=== PATIENT | male | born 1965 | race Caucasian/White ===

== ENCOUNTER 2016-09-01 13:22 | Outpatient (CLI) | payer OTHER ==
[2016-09-01] MEDS ORDERED: LIDOCAINE 1% 50 ML MDV SUBQ ONE ×2 (14:12)
[2016-09-01] MEDS ORDERED: IOTHALAMATE MEGLUMINE 50 ML VIAL IVP ONE ×2 (14:12)
[2016-09-01] MEDS ORDERED: BUFFERED LIDOCAINE 10 ML SYRINGE IU ONE ×2 (14:12)
[2016-09-01] MEDS ORDERED: GADOPENTETATE DIMEGLUMINE 5 ML VIAL IVP ONE ×2 (14:12)
== END 2016-09-01 13:23 | disposition home or self-care (01) ==
DX: M19.012 Primary osteoarthritis, left shoulder (principal); M94.212 Chondromalacia, left shoulder; M24.012 Loose body in left shoulder; S46.812A Strain of other muscles, fascia and tendons at shoulder and upper arm level, left arm, initial encounter; S43.432A Superior glenoid labrum lesion of left shoulder, initial encounter
CPT/HCPCS: 23350; 73222; 77002; Q9961

== ENCOUNTER 2017-01-04 21:29 | Observation (INO) | payer OTHER ==
[2017-01-04] MEDS ORDERED: oxyCOD/ACETAMIN 5 MG/325 MG TABLET PO STA (22:22)
[2017-01-04] MEDS ORDERED: oxyCOD/ACETAMIN 5 MG/325 MG TABLET PO ONE (22:33)
[2017-01-04] MEDS ORDERED: ALBUTEROL NEB 2.5 MG/3 ML INH STA (22:36)
--- NOTE | 2017-01-04 22:36 | XRAY Preliminary Report ---
Exam: XR Chest 2 View PA/LAT IMPRESSION: Negative 2-view chest radiography. [facility] SITE ID: [id number]
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
--- NOTE | 2017-01-04 22:40 | XRAY Preliminary Report ---
Exam: XR Shoulder 3 View LT IMPRESSION: 1. Question tiny avulsion fracture off the superior aspect of the glenoid, age-indeterminate if real. If clinically indicated, MRI follow-up can be considered. 2. Moderate acromioclavicular degenerative changes. [facility] SITE ID: [id number]
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
[2017-01-04] MEDS ORDERED: SODIUM CHLORIDE FLUSH 0.9% 10 ML SYRINGE IVP PRN (23:39)
[2017-01-04 23:57] LABS: BASOPHILS # (AUTO) 0.1 10^3/uL (0.0-0.1); BASOPHILS % (AUTO) 0.5 %; EOSINOPHILS # (AUTO) 0.1 10^3/uL (0.0-0.7); EOSINOPHILS % (AUTO) 0.5 %; HCT - HEMATOCRIT 47.2 % (42.0-52.0); LYMPHOCYTES # (AUTO) 2.2 10^3/uL (1.5-3.5); MEAN CORPUSCULAR HEMOGLOBIN 29.8 pg (27.0-31.0); MEAN CORPUSCULAR VOLUME 87.7 fL (80.0-94.0); MEAN PLATELET VOLUME 8.1 fL (7.4-11.4); MONOCYTES # (AUTO) 0.8 10^3/uL (0.0-1.0); MONOCYTES % (AUTO) 4.9 %; NEUTROPHILS # (AUTO) 12.9 10^3/uL (1.5-6.6); NEUTROPHILS % (AUTO) 80.1 %; RED BLOOD COUNT 5.38 10^6/uL (4.70-6.10); RED CELL DISTRIBUTION WIDTH 13.5 % (12.0-15.0); UNCORRECTED WHITE BLOOD COUNT 16.1 x10^3/uL; WHITE BLOOD COUNT 16.1 x10^3/uL (4.8-10.8)
[2017-01-05 00:05] LABS: ALBUMIN/GLOBULIN RATIO 1.5 (1.0-2.2); BILIRUBIN,TOTAL 0.9 mg/dL (0.2-1.0); CALCIUM 9.9 mg/dL (8.5-10.3); CREATININE 1.1 mg/dL (0.6-1.2); POTASSIUM 3.8 mmol/L (3.5-5.0); TOTAL PROTEIN 7.8 g/dL (6.7-8.2)
[2017-01-05] MEDS ORDERED: PROCHLORPERAZINE INJ 10 MG in SODIUM CHLORIDE 0.9% 50 ML IV PRN (00:28)
[2017-01-05] MEDS: oxyCOD/ACETAMIN 5 MG/325 MG TABLET PO PRN ×3 (01:01→14:53)
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
[2017-01-05] MEDS: SODIUM CHLORIDE FLUSH 0.9% 10 ML SYRINGE IVP SCH ×2 (04:05→14:07)
[2017-01-05] MEDS: HYDROmorphone 1 MG/ML SYRINGE IVP PRN ×2 (04:05→07:39)
[2017-01-05] MEDS ORDERED: POLYETHYLENE GLYCOL 3350 17 GM PACKET PO SCH (09:00)
[2017-01-05] MEDS ORDERED: LOSARTAN 50 MG TABLET PO SCH (09:00)
[2017-01-05] MEDS ORDERED: ALLOPURINOL 100 MG TABLET PO SCH (09:00)
[2017-01-05 11:26] LABS: BASOPHILS # (AUTO) 0.1 10^3/uL (0.0-0.1); BASOPHILS % (AUTO) 0.8 %; EOSINOPHILS # (AUTO) 0.2 10^3/uL (0.0-0.7); EOSINOPHILS % (AUTO) 2.3 %; HCT - HEMATOCRIT 42.8 % (42.0-52.0); HGB - HEMOGLOBIN 14.5 g/dL (14.0-18.0); LYMPHOCYTES # (AUTO) 2.2 10^3/uL (1.5-3.5); LYMPHOCYTES % (AUTO) 24.9 %; MEAN CORPUSCULAR HEMOGLOBIN 29.5 pg (27.0-31.0); MEAN CORPUSCULAR HGB CONC 33.9 g/dL (32.0-36.0); MEAN CORPUSCULAR VOLUME 87.1 fL (80.0-94.0); MEAN PLATELET VOLUME 7.2 fL (7.4-11.4); MONOCYTES # (AUTO) 0.5 10^3/uL (0.0-1.0); MONOCYTES % (AUTO) 6.2 %; NEUTROPHILS # (AUTO) 5.7 10^3/uL (1.5-6.6); NEUTROPHILS % (AUTO) 65.8 %; RED BLOOD COUNT 4.91 10^6/uL (4.70-6.10); RED CELL DISTRIBUTION WIDTH 13.5 % (12.0-15.0); UNCORRECTED WHITE BLOOD COUNT 8.7 x10^3/uL; WHITE BLOOD COUNT 8.7 x10^3/uL (4.8-10.8)
[2017-01-05 11:36] LABS: ALBUMIN/GLOBULIN RATIO 1.5 (1.0-2.2); BILIRUBIN,TOTAL 1.1 mg/dL (0.2-1.0); CREATININE 0.9 mg/dL (0.6-1.2); POTASSIUM 3.6 mmol/L (3.5-5.0); TOTAL PROTEIN 6.5 g/dL (6.7-8.2)
--- NOTE | 2017-01-05 12:24 | Discharge Plan ---
Discharge Plan Disposition: 01 Home, Self Care Condition: Stable Prescriptions: oxyCODONE/ACET 5/325 [Percocet 5 mg/325 mg] 1 each PO Q4-6H PRN #35 tablet PRN Reason: Pain Diet: Regular Activity Restrictions: Activity as Tolerated Shower Restrictions: No Driving Restrictions: No Weight Bearing: Full Weight Additional Instructions or Follow Up instructions: May see Dr. Trinidad in one week May see PCP in two weeks Follow-Up Care: [facility] - Wound/Ostomy No Smoking: If you smoke, Please STOP! Call for help. Follow-up with: DURGA MULTANI [Primary Care Provider] -
[2017-01-05 15:32] VITALS: BP 150/85
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
== END 2017-01-05 17:30 | disposition home or self-care (01) ==
LOC: ED 21:29 → OBS 23:39
PROVIDERS: ADMIT Internal Medicine; ATTEND Nurse Practitioner Gerontology
DX: R79.89 Other specified abnormal findings of blood chemistry (principal); S42.142A Displaced fracture of glenoid cavity of scapula, left shoulder, initial encounter for closed fracture; R07.1 Chest pain on breathing; S20.419A Abrasion of unspecified back wall of thorax, initial encounter; V18.0XXA Pedal cycle driver injured in noncollision transport accident in nontraffic accident, initial encounter; Y93.55 Activity, bike riding; Y92.830 Public park as the place of occurrence of the external cause; I10 Essential (primary) hypertension; E78.00 Pure hypercholesterolemia, unspecified; M10.9 Gout, unspecified; E66.9 Obesity, unspecified; Z68.33 Body mass index [BMI] 33.0-33.9, adult
CPT/HCPCS: 36415; 71020; 73030; 80053; 84484; 85025; 93005; 93306; 96374; 96376; 99283; 99284; A9270; G0378; J1170

== ENCOUNTER 2020-06-17 08:29 | Emergency (ER) | payer OTHER ==
[2020-06-17 08:33] VITALS: BP 188/87
--- NOTE | 2020-06-17 08:51 | ED Physician Documentation ---
PD HPI HEENT - Stated complaint Stated Complaint: EAR PX - Chief complaint Chief Complaint: Heent - History obtained from History obtained from: Patient - Additional information Additional information: 54-year-old man with history of recurrent ear infections presents with gradual onset bilateral ear pain over the past 3 to 4 days, worse on the right versus the left, associated with hearing loss/muffled hearing. Pain is constant, throbbing, worse with pulling on the ear and opening and closing the jaw. Patient states that he has been using Q-tips, hydrogen peroxide, applying heat pads to the air. Denies mastoid pain, headache, fever, nasal congestion or sore throat, jaw pain. Review of Systems Constitutional: denies: Fever, Chills Ears: reports: Loss of hearing, Ear pain. denies: Drainage/discharge Throat: denies: Sore throat PD PAST MEDICAL HISTORY - Past Medical History Cardiovascular: None Respiratory: None Endocrine/Autoimmune: None GI: None : None HEENT: None Psych: None Musculoskeletal: None Derm: None - Past Surgical History Past Surgical History: Yes General: Other - Present Medications Home Medications: Ambulatory Orders Medication Instructions Recorded Confirmed Losartan [Cozaar] 50 mg PO DAILY 01/05/17 06/17/20 Simvastatin 80 mg PO DAILY PM 01/05/17 06/17/20 allopurinoL [Allopurinol] 100 mg PO DAILY 01/05/17 06/17/20 oxyCODONE/ACET 5/325 [Percocet 5 1 each PO Q4-6H PRN #35 tablet 01/05/17 06/17/20 mg/325 mg] Ciproflox/Dexameth Otic Drops 4 drops OT BID 14 Days #1 bottle 06/17/20 [Ciprodex] - Allergies Allergies/Adverse Reactions: Allergies Allergy/AdvReac Type Severity Reaction Status Date / Time No Known Drug Allergies Allergy Verified 06/17/20 08:33 - Social History Does the pt smoke?: No Smoking Status: Never smoker Does the pt drink ETOH?: No Does the pt have substance abuse?: No - Immunizations Immunizations are current?: Yes - POLST Patient has POLST: No PD ED PE NORMAL - Vitals Vital signs reviewed: Yes - General General: Alert and oriented X 3, No acute distress, Well developed/nourished - HEENT HEENT: Atraumatic, PERRL, EOMI, Moist mucous membranes, Pharynx benign, Other (BL ext aud canal swelling, R worse than left. chronic granulation tissue noted bilaterally. TMs nonvisualized 2/2 swelling. no mastoid ttp. no trismus) - Neck Neck: Supple, no meningeal sign Results - Vitals Vitals: Vital Signs - 24 hr 06/17/20 08:32 Temperature 36.1 C L Heart Rate 75 Respiratory 20 Rate Blood Pressure 188/87 H O2 Saturation 100 Oxygen O2 Source Room air PD MEDICAL DECISION MAKING - ED course ED course: 54-year-old man presents with external ear infection without signs of mastoiditis/central infection. Antibiotic drops prescribed. Strict return precautions given. Patient will follow up with his primary doctor this week Departure - Departure Disposition: 01 Home, Self Care Clinical Impression: Otitis externa Condition: Good Instructions: ED Otitis Externa Prescriptions: Ciproflox/Dexameth Otic Drops [Ciprodex] 4 drops OT BID 14 Days #1 bottle Comments: You were seen in the emergency department for external ear infection. You have significant swelling and narrowing of the external ear canal and will need to do Eardrops as prescribed. Return to the emergency department for any of the symptoms we discussed, or for any new or worsening symptoms or other concerns. Follow-up with your primary doctor this week. Take regular strength ibuprofen 3 pills (600 mg) every 6 hours as needed for pain and for anti-inflammatory properties.
== END 2020-06-17 09:02 | disposition home or self-care (01) ==
LOC: ED 08:29
DX: H60.93 Unspecified otitis externa, bilateral (principal)
CPT/HCPCS: 99281; 99283

== ENCOUNTER 2023-08-28 11:50 | Emergency (ER) | payer OTHER ==
[2023-08-28 12:06] VITALS: BP 180/76; O2SAT 98
--- NOTE | 2023-08-28 12:09 | ED Physician Documentation ---
PD HPI BACK PAIN - Stated complaint Stated Complaint: PX DOWN LT LEG - Chief complaint Chief Complaint: Back Pain - History obtained from History obtained from: Patient - Additional information Additional information: 57-year-old gentleman with history of recurrent sciatica although has not had a flare in some time developed some low back pain while gardening about 2 weeks ago. More recently the pain is more severe in the left buttock down towards the left knee and ankle laterally. There was no specific injury. Denies incontinence, fever, saddle anesthesia. No IV drug use. PD PAST MEDICAL HISTORY - Past Medical History Cardiovascular: None Respiratory: None Endocrine/Autoimmune: None GI: None : None HEENT: None Psych: None Musculoskeletal: None Derm: None - Past Surgical History Past Surgical History: Yes General: Other - Present Medications Home Medications: Ambulatory Orders Medication Instructions Recorded Confirmed Losartan [Cozaar] 50 mg PO DAILY 01/05/17 06/17/20 Simvastatin 80 mg PO DAILY PM 01/05/17 06/17/20 allopurinoL [Allopurinol] 100 mg PO DAILY 01/05/17 06/17/20 oxyCODONE/ACET 5/325 [Percocet 5 1 each PO Q4-6H PRN #35 tablet 01/05/17 06/17/20 mg/325 mg] Ciproflox/Dexameth Otic Drops 4 drops OT BID 14 Days #1 bottle 06/17/20 [Ciprodex] HYDROcod/ACETAM 5/325 [Marvell 5/325] 1 - 2 tab PO Q6H PRN #10 tablet 08/28/23 predniSONE [Deltasone] 20 mg PO [id number] #21 tab 08/28/23 - Allergies Allergies/Adverse Reactions: Allergies Allergy/AdvReac Type Severity Reaction Status Date / Time No Known Drug Allergies Allergy Verified 08/28/23 12:01 - Social History Does the pt smoke?: No Smoking Status: Never smoker Does the pt drink ETOH?: No Does the pt have substance abuse?: No - Immunizations Immunizations are current?: Yes - POLST Patient has POLST: No PD ED PE NORMAL - Vitals Vital signs reviewed: Yes - General General: Alert and oriented X 3, Other (Comfortable at rest with slight wincing with motion) - Back Back: No spinal TTP - Extremities Extremities: Other (The patient has equal and normal Achilles and patellar reflexes bilaterally. Normal sensation in all areas of the legs. Patient denies saddle anesthesia. Normal strength in flexion-extension at the ankles, knees, and flexion of the hips.) - Neuro Neuro: Alert and oriented X 3 Results - Vitals Vitals: Vital Signs - 24 hr 08/28/23 11:57 Temperature 36.8 C Heart Rate 77 Respiratory 20 Rate Blood Pressure 180/76 H O2 Saturation 98 Oxygen O2 Source Room air PD Medical Decision Making - ED course ED course: 57-year-old gentleman with a recurrence of sciatica requesting a steroid shot. This patient has seemingly uncomplicated musculoskeletal back pain. The patient has no "red flags." Specifically denies IV drug use, fevers, incontinence, saddle anesthesia. Spinal epidural abscess was considered, given that the patient has no fever, is not diabetic, has no spinal tenderness, does not use IV drugs, and has no bilateral neurologic symptoms, the diagnosis of spinal epidural abscess is considered exceedingly unlikely. Departure - Departure Disposition: 01 Home, Self Care Clinical Impression: Sciatica Condition: Good Record reviewed to determine appropriate education?: Yes Instructions: ED Sciatica Prescriptions: predniSONE [Deltasone] 20 mg PO [id number] #21 tab HYDROcod/ACETAM 5/325 [Marvell 5/325] 1 - 2 tab PO Q6H PRN #10 tablet PRN Reason: Pain Comments: [facility] [place]. I am prescribing a short course of narcotic pain medication for you. These are potentially dangerous and addictive medications that should be used carefully. These medications may constipate you. Take an qfwt-tro-yznhsem stool softener (docusate) twice daily with plenty of water while taking these medications. If you go 24 hours without a bowel movement, take [id number] miralax, per package instructions. Do not drink or drive while taking these medications. If you received narcotic or sedating medications while in the emergency department, do not drive for 24 hours. Store this medication in a safe, secure place and out of reach of children. It is a violation of federal law to give or sell this medication to another person or to use in a manner other than prescribed. The ED will not refill narcotic prescriptions, including prescriptions lost or stolen. To dispose of unwanted medications: 1. [facility]'s Office provides a drop box for medication in pill form only (no liquids) 8:00 am to 4:30 p.m. Wednesday-Wednesday in the lobby of [facility], [address] Empty pills into ziplock bag before disposal. Call [phone] for information. 2.[employer] is a free service available to all [facility] residents. Go to [email or web address] Note that many narcotic pain relievers also contain Tylenol/acetaminophen. Please ensure that your total dose of acetaminophen from all sources does not exceed 3 g (3000 mg) per day.
[2023-08-28] MEDS: DEXAMETHASONE 10 MG/ML VIAL IM STA (12:17)
--- NOTE | 2023-08-30 12:50 | ED Physician Documentation ---
ED Addendum - Addendum Addendum: 08/30/23 12:49 RN took call, patient having hiccups with prednisone and would like alternative. Prescription for dexamethasone 4 mg p.o. twice daily #10 sent to [facility] as an alternative.
== END 2023-08-28 12:40 | disposition home or self-care (01) ==
LOC: ED 11:50
DX: M54.32 Sciatica, left side (principal); T38.0X5A Adverse effect of glucocorticoids and synthetic analogues, initial encounter; R06.6 Hiccough; Z79.899 Other long term (current) drug therapy
CPT/HCPCS: 96372; 99283

== ENCOUNTER 2023-10-10 16:06 | Emergency (ER) | payer OTHER ==
[2023-10-10] MEDS: HYDROmorphone 1 MG/ML CARPUJECT IM STA (16:41)
[2023-10-10] MEDS: KETOROLAC 60 MG/2 ML VIAL IM STA (16:41)
[2023-10-10] MEDS: CHERRY SYRUP 10 ML UDC PO STA (16:42)
[2023-10-10] MEDS: DEXAMETHASONE 10 MG/ML VIAL PO STA (16:42)
--- NOTE | 2023-10-10 16:44 | ED Physician Documentation ---
PD HPI BACK PAIN - Stated complaint Stated Complaint: BACK PX - Chief complaint Chief Complaint: Back Pain - History obtained from History obtained from: Patient - History of Present Illness Pain level max: 9 Pain level now: 9 Location: Lower, Left Quality: Pain, Spasm, Similar to prior episodes Associated symptoms: No: Fever, Weakness, Numbness, Incontinent of urine, Unable to urinate, Hematuria, Incontinent of stool Improves with: Rest Worsened by: Movement Contributing factors: No: Trauma, Anticoagulated, Cancer, IVDA - Additional information Additional information: Patient is a 57-year-old male with a long history of chronic back pain. He was seen here 2 months ago for sciatica. He states that the pain has never really fully gone away, he has been seeing a chiropractor, but does not feel like it is helping. Has not seen physical therapy or a spine surgeon yet. He states the pain radiates down the left leg has had some episodes of tingling, no numbness now. No loss of bowel or bladder control. Does not use IV drugs. He states that he thinks he "overdid it" yesterday he states he was working in the yard and garden for about 7 to 8 hours. His back started to hurt after about 3 hours but he decided to "push through it". Most of the pain is in the lower left side. Feels similar to prior episodes of sciatica. No trauma. Not anticoagulated. No cancer. No IV drug use. Review of Systems Constitutional: denies: Fever, Chills Respiratory: denies: Cough GI: denies: Abdominal Pain, Vomiting, Diarrhea : denies: Dysuria, Frequency, Hesitancy, Unable to Void, Incontinent Skin: denies: Rash Musculoskeletal: denies: Neck pain Neurologic: denies: Focal weakness, Headache, Head injury PD PAST MEDICAL HISTORY - Past Medical History Cardiovascular: None Respiratory: None Endocrine/Autoimmune: None GI: None : None HEENT: None Psych: None Musculoskeletal: None Derm: None - Past Surgical History Past Surgical History: Yes General: Other - Present Medications Home Medications: Ambulatory Orders Medication Instructions Recorded Confirmed Losartan [Cozaar] 50 mg PO DAILY 01/05/17 06/17/20 Simvastatin 80 mg PO DAILY PM 01/05/17 06/17/20 allopurinoL [Allopurinol] 100 mg PO DAILY 01/05/17 06/17/20 oxyCODONE/ACET 5/325 [Percocet 5 1 each PO Q4-6H PRN #35 tablet 01/05/17 06/17/20 mg/325 mg] Ciproflox/Dexameth Otic Drops 4 drops OT BID 14 Days #1 bottle 06/17/20 [Ciprodex] HYDROcod/ACETAM 5/325 [Glennie 5/325] 1 - 2 tab PO Q6H PRN #10 tablet 08/28/23 predniSONE [Deltasone] 20 mg PO [id number] #21 tab 08/28/23 dexAMETHasone [Decadron] 4 mg PO BIDWM #10 tablet 08/30/23 Meloxicam [Mobic] 7.5 mg PO BID PRN #20 tablet 10/10/23 methylPREDNISolone [Medrol] 4 mg PO DAILY #1 each 10/10/23 oxyCODONE [Roxicodone] 5 - 10 mg PO Q6H PRN #14 tablet 10/10/23 MDD 6 - Allergies Allergies/Adverse Reactions: Allergies Allergy/AdvReac Type Severity Reaction Status Date / Time No Known Drug Allergies Allergy Verified 08/28/23 12:01 - Social History Does the pt smoke?: No Smoking Status: Never smoker Does the pt drink ETOH?: No Does the pt have substance abuse?: No - Immunizations Immunizations are current?: Yes - POLST Patient has POLST: No PD ED PE NORMAL - Vitals Vital signs reviewed: Yes - General General: Alert and oriented X 3, No acute distress, Well developed/nourished - HEENT HEENT: Moist mucous membranes - Neck Neck: Supple, no meningeal sign - Cardiac Cardiac: RRR, Strong equal pulses - Respiratory Respiratory: No respiratory distress, Clear bilaterally - Abdomen Abdomen: Soft, Non tender, Non distended - Back Back: No spinal TTP (No midline tenderness to palpation or percussion. No step- off or deformity. Mild paraspinal spasm left lower lumbar.) - Derm Derm: Warm and dry - Extremities Extremities: No deformity, No edema - Neuro Neuro: Alert and oriented X 3, No motor deficit, No sensory deficit, Other (Normal bilateral lower extremity patellar and ankle jerk reflexes. Normal great toe extension bilaterally. no saddle anesthesia) - Psych Psych: Normal mood, Normal affect Results - Vitals Vitals: Vital Signs - 24 hr 10/10/23 10/10/23 16:12 17:08 Temperature 36.3 C L Heart Rate 77 74 Respiratory 18 18 Rate Blood Pressure 173/84 H 147/87 H O2 Saturation 98 96 Oxygen O2 Source Room air PD Medical Decision Making - ED course Complexity details: reviewed results, re-evaluated patient, considered differential (No cauda equina, no spinal epidural abscess, no fracture, no aortic dissection or evidence of aneursym rupture), d/w patient ED course: 57-year-old male presents to the emergency department with acute on chronic back pain, left-sided sciatica. We will place on pain medication and steroids for home. Will have him follow-up with his doctor for further care. No focal neurological deficits here. No evidence of cauda equina, epidural abscess. No evidence of acute fracture. No indication for emergent neuroimaging. Pain improved with a dose of IM Toradol, Dilaudid and oral dexamethasone. Patient counseled regarding signs and symptoms for which I believe and urgent re- evaluation would be necessary. Patient with good understanding of and agreement to plan and is comfortable going home at this time This document was made in part using voice recognition software. While efforts are made to proofread this document, sound alike and grammatical errors may occur. Departure - Departure Disposition: 01 Home, Self Care Clinical Impression: Sciatica Qualifiers: Laterality: left Qualified Code(s): M54.32 - Sciatica, left side Condition: Good Instructions: ED Sciatica Follow-Up: your,doctor in 1 week [Other] Prescriptions: methylPREDNISolone [Medrol] 4 mg PO DAILY #1 each Meloxicam [Mobic] 7.5 mg PO BID PRN #20 tablet PRN Reason: Pain oxyCODONE [Roxicodone] 5 - 10 mg PO Q6H PRN #14 tablet MDD 6 PRN Reason: pain Comments: Your prescriptions were sent to [facility] in [place]. Please follow-up with your doctor for further care. Please return if you worsen. Continue gentle stretching at home. You can use the oxycodone as needed for breakthrough pain. I am prescribing a short course of narcotic pain medication for you. These are potentially dangerous and addictive medications that should be used carefully. These medications may constipate you. Take an muon-tvw-ouastxy stool softener (docusate) twice daily with plenty of water while taking these medications. If you go 24 hours without a bowel movement, take wzgk-jkf-kshitea miralax, per package instructions. Do not drink or drive while taking these medications. If you received narcotic or sedating medications while in the emergency department, do not drive for 24 hours. Store this medication in a safe, secure place and out of reach of children. It is a violation of federal law to give or sell this medication to another person or to use in a manner other than prescribed. The ED will not refill narcotic prescriptions, including prescriptions lost or stolen. To dispose of unwanted medications: 1. [facility] [address] [facility] in [place] has a medication drop box. They accept prescription medications (in pill form) Wednesday through Wednesday 9:00 a.m. to 5:00 p.m. 2. The [facility] [employer] accepts prescription medications (in pill form only) for disposal year round. Call for more information. 3. Contact the [facility] for the next [facility] sponsored prescription drug collection event. , [phone], or [phone]; Discharge Date/Time: 10/10/23 17:08
[2023-10-10 17:11] VITALS: BP 147/87; O2SAT 96
== END 2023-10-10 17:08 | disposition home or self-care (01) ==
LOC: ED 16:06
DX: M54.32 Sciatica, left side (principal); Z79.899 Other long term (current) drug therapy
CPT/HCPCS: 96372; 99283; 99284; A9270; J1170